=== PATIENT | male | born 1950 | race Caucasian/White ===

== ENCOUNTER 2020-01-06 09:52 | Day surgery (SDC) | payer MEDICARE ==
[2020-01-04 15:30] VITALS: BMI 23.9
[2020-01-06] MEDS ORDERED: SODIUM CHLORIDE 0.9% 500 ML 500 ML IV ONE (10:29)
[2020-01-06 10:31] VITALS: TEMP 98.5
[2020-01-06] MEDS ORDERED: fentaNYL (PF) 50 MCG/ML 2 ML AMP ONE (10:43)
[2020-01-06] MEDS: BENZOCAINE SPRAY 1 CAN TOPICAL ONE ×2 (11:07→11:28)
[2020-01-06] MEDS ORDERED: fentaNYL (PF) 50 MCG/ML 2 ML AMP IVP ONE (11:29)
[2020-01-06] MEDS ORDERED: MIDAZOLAM 2 MG/2 ML VIAL IVP ONE (11:29)
[2020-01-06 11:41] VITALS: RESP 16
--- NOTE | 2020-01-06 12:05 | ECHOT ---
TRANSESOPHAGEAL ECHOCARDIOGRAM INDICATION: CVA, rule out cardiac source of thromboembolic phenomenon. PROCEDURE NOTE: After obtaining informed consent, transesophageal echocardiogram was performed in left lateral position using an Omni plane probe. Local and IV sedation were obtained using Xylocaine spray, intravenous Versed, Demerol, intravenous Versed and fentanyl. Patient tolerated the procedure well without any obvious immediate complications. FINDINGS: 1. There is no intracardiac thrombus within the left atrial appendage, left atrium, right atrium, right ventricle. 2. Interatrial septum, there is no evidence of apzh-ms-[id number] shunt by color-flow Doppler or yadnf-gx-nhhm shunt by agitated saline contrast study. 3. Aortic valve is a 3-leaflet valve. There is mild aortic regurgitation noted. 4. There is mild mitral regurgitation noted. 5. Tricuspid valve appears normal. 6. Left ventricle has normal size and systolic function. 7. Aorta shows mild atherosclerotic changes. 8. There is a annulus aortic ectasia noted. CONCLUSION: 1. No intracardiac thrombus. 2. No shunting across the interatrial septum. 3. Annulus aortic ectasia noted. MMODL / IJN: [id number] /
[2020-01-06 12:41] VITALS: BP 124/62; PULSE 67
--- NOTE | 2020-01-10 07:41 | CDI ---
Outpatient Documentation Clarification Form Date: 01/10/20 CDS/Bag End Sewer Name: Julisa Hankins Phone: If any questions, call [facility] [employer] [facility] at [phone] Patient Name: Buzz Grigsby Admit Date: 01/06/20 Discharge Date: 01/06/20 ATTENTION: The [facility] Coding Staff appreciate your assistance in clarifying documentation. Please respond to the clarification below the line at the bottom and electronically sign. The [facility] Coding staff will review the response and follow-up if needed. Please note: Queries are made part of the Legal Health Record. If you have any questions, please contact the [employer] [facility]. Dear Dr. Alvarenga, Please clarify what parts of the PRASHANT per performed. The charges indicate [id number] Echocardiography transesophageal, [place] 2[place] 99[address] dopple echocardiography color flow velocity mapping. Documentation does not reflect this. Please clarify. Thank you for your kind consideration 2d doppler and colour fow done___ MTDD
== END 2020-01-06 12:41 | disposition home or self-care (01) ==
LOC: CATHCVL 09:52
PROVIDERS: ATTEND Internal Medicine Cardiovascular Disease
DX: I77.819 Aortic ectasia, unspecified site (principal); I08.0 Rheumatic disorders of both mitral and aortic valves; Z86.73 Personal history of transient ischemic attack (TIA), and cerebral infarction without residual deficits; E78.5 Hyperlipidemia, unspecified; Z79.899 Other long term (current) drug therapy
CPT/HCPCS: 93312; 93325; J2250; J3010

== ENCOUNTER → 2023-07-05 | Outpatient (CLI) | payer MEDICARE ==
--- NOTE | 2023-07-07 10:12 | MR ---
EXAMINATION TYPE: MR Prostate wo/w con DATE OF EXAM: 07/05/2023 9:06 AM COMPARISON: None CLINICAL INDICATION:Male, 72 years old with history of R97.20 ELEVATED PROSTATE SPECIFIC ANTIGEN; Brisa vated PSA. TECHNIQUE: Multi-planar, multi-sequence imaging of the pelvis is performed prior to and following the uncomplicated administration of bolus intravenous gadolinium. CONTRAST: 8 Gadobutrol Interpretive Criteria: PI-RADS v2.1 SERUM PSA: 8.7 on 06/20/2023. 7.5 on 05/21/2023. 5.1 on 11/07/2021. 4.2 on 09/07/2020. SURGICAL PATHOLOGY: No data available. FINDINGS: Prostatic dimensions: 5.4 x 5.1 x 4.1 cm. Ellipsoid Volume:59.12 (PSA density=0.15 ng/mL/mL) CENTRAL GLAND (Central and Transition Zones/CZ+TZ): Multiple bilateral, heterogenous appearing hypertrophic stromal nodules, without suspicious lesion. M edian lobe hypertrophy with protrusion into the base of the bladder. (PI-RADS 2) e PERIPHERAL ZONE (PZ): Posterior right peripheral zone mid gland/base are 2 areas of high DWI and low ADC signal measuring 6 mm and 6 mm series 803 image 104. An additional area measuring 7 mm involving the apex is also prese nt. (PI-RADS 4) SEMINAL VESICLES (SV): Symmetric and unremarkable. PERIPROSTATIC TISSUES: Unremarkable. LYMPH NODES: No enlarged pelvic lymph node. REMAINING PELVIS: Bladder wall is within normal limits given distention. No abnormal free or organized intrapelvic fluid collection. No pathologic bowel dilation or mural thickening. Colonic diverticula are present. No hernia visualized OSSEOUS STRUCTURES: No suspicious osseous abnormality. IMPRESSION: 1. Multiple PI-RADS 4 lesions within the peripheral gland on the right. 2 adjacent lesions near the b ase/mid gland measuring 6 mm and another lesion in the apex on the right measuring up to 7 mm. 2. Moderate BPH, estimated gland volume 59.12 mL. 3. No suspicious osseous lesion. No lymphadenopathy. No evidence of prostate adenocarcinoma involving the periprostatic tissues.
== END | disposition home or self-care (01) ==
LOC: RADMRIMAIN 07:29
PROVIDERS: ATTEND Urology
DX: N40.0 Benign prostatic hyperplasia without lower urinary tract symptoms (principal); R97.20 Elevated prostate specific antigen [PSA]
CPT/HCPCS: 72197; A9585

== ENCOUNTER → 2023-08-05 | Outpatient (CLI) | payer MEDICARE ==
[2023-08-05 17:07] LABS: African American GFR (CKD) >90 (>60 ml/min/1.73 sqM); Blood Urea Nitrogen 22 mg/dL (9-20); Non-African American GFR(CKD) >90 (>60 ml/min/1.73 sqM)
--- NOTE | 2023-08-05 19:41 | CT ---
EXAMINATION TYPE: CT chest w con DATE OF EXAM: 08/05/2023 COMPARISON: 03/10/2023 HISTORY: 73-year-old male R91.8, f/u abnormal findings TECHNIQUE: Contiguous axial scanning of the chest after the administration of 100 mL of Isovue 300. Coronal/sagittal reconstructions performed. CT DLP: 521mGycm. Automatic exposure control utilized for a dose reduction. FINDINGS: The heart is normal size without pericardial effusion. Aorta is normal caliber with mild atherosclerotic arch calcifications. 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 No thoracic lymphadenopathy by CT size criteria. Unchanged 5 mm subpleural pulmonary nodule periphery of the right base. Unchanged 7 mm subpleural pulmonary nodule anterior right base. Unchanged 4 mm subpleural pulmonary nodule anterior right middle lobe, axial image 41. No consolidation or pleural effusion. Visualized upper abdomen shows no gross abnormality. Immediate tiny hiatal hernia. Bones: No osseous destructive process. IMPRESSION: A few pulmonary nodules at the right base measuring up to 7 mm remain unchanged for 5 months. Ongoing 6-12 month follow-up CT recommended to ensure more long-term stability. No acute pulmonary process.
== END | disposition home or self-care (01) ==
LOC: RADCTMAIN 16:12
PROVIDERS: ATTEND Family Medicine
DX: R91.8 Other nonspecific abnormal finding of lung field (principal)
CPT/HCPCS: 82565; 84520; 71260; 36415; Q9967

== ENCOUNTER → 2023-08-05 | Outpatient (CLI) | payer MEDICARE ==
[2023-08-05 16:46] LABS: Basophils # (A) 0.04 X 10*3/uL (0.00-0.10); Basophils % (A) 0.5 %; Eosinophils # (A) 0.16 X 10*3/uL (0.04-0.35); Eosinophils % (A) 1.9 %; HCT 45.7 % (39.6-50.0); HGB 15.2 g/dL (13.0-17.0); Lymphocytes # (A) 1.24 X 10*3/uL (0.90-5.00); MCHC 33.3 g/dL (32.0-37.0); MCV 93.3 FL (80.0-97.0); Mean Platelet Volume 10.3 FL (9.5-12.2); Monocytes # (A) 0.67 X 10*3/uL (0.20-1.00); Monocytes % (A) 8.1 %; NRBC Per 100 WBC 0 X 10*3/uL (0.00-0.01); Neutrophils # (A) 6.12 X 10*3/uL (1.80-7.70); Neutrophils % (A) 74.1 %; Platelet Count 156 X 10*3/uL (140-440); RDW 12.8 % (11.5-14.5); WBC 8.26 X 10*3/uL (4.50-10.00)
[2023-08-05 16:50] LABS: BUN/Creat Ratio 21.78 Ratio (12.00-20.00); Blood Urea Nitrogen 19.6 mg/dL (9.0-27.0); Glucose 218 mg/dL (70-110)
[2023-08-05 16:51] LABS: Calcium 9.8 mg/dL (8.7-10.3); Carbon Dioxide 26.2 mmol/L (21.6-31.8); Chloride 103 mmol/L (96-109); Potassium 4.8 mmol/L (3.5-5.5); Sodium 140 mmol/L (135-145)
[2023-08-05 16:54] LABS: Appearance,Urine Clear (Clear); Bilirubin,Urine Negative (Negative); Blood,Urine Negative (Negative); Color,Urine Yellow (Yellow); Ketones,Urine Negative (Negative); Nitrite,Urine Negative (Negative); Specific Gravity,Urine >1.035 (1.001-1.030); Urobilinogen,Urine 0.2
== END | disposition home or self-care (01) ==
LOC: LABPAT 09:39
PROVIDERS: ATTEND Urology
DX: Z01.812 Encounter for preprocedural laboratory examination (principal); R97.20 Elevated prostate specific antigen [PSA]
CPT/HCPCS: 36415; 80048; 81003; 85025; 87086

== ENCOUNTER → 2023-10-03 | Outpatient (CLI) | payer MEDICARE ==
[2023-10-03 16:25] LABS: Basophils # (A) 0.02 X 10*3/uL (0.00-0.10); Basophils % (A) 0.3 %; Eosinophils # (A) 0.13 X 10*3/uL (0.04-0.35); Eosinophils % (A) 1.9 %; HCT 42.2 % (39.6-50.0); HGB 14.5 g/dL (13.0-17.0); Lymphocytes # (A) 1.39 X 10*3/uL (0.90-5.00); Lymphocytes % (A) 20.3 %; MCH 31.2 pg (27.0-32.0); MCHC 34.4 g/dL (32.0-37.0); MCV 90.8 FL (80.0-97.0); Mean Platelet Volume 10.6 FL (9.5-12.2); Monocytes # (A) 0.61 X 10*3/uL (0.20-1.00); Monocytes % (A) 8.9 %; NRBC Per 100 WBC 0 X 10*3/uL (0.00-0.01); Neutrophils # (A) 4.68 X 10*3/uL (1.80-7.70); Neutrophils % (A) 68.3 %; Platelet Count 134 X 10*3/uL (140-440); RBC 4.65 X 10*6/uL (4.40-5.60); RDW 12.3 % (11.5-14.5); WBC 6.85 X 10*3/uL (4.50-10.00)
[2023-10-03 16:37] LABS: Blood Urea Nitrogen 18.8 mg/dL (9.0-27.0); Calcium 9.6 mg/dL (8.7-10.3); Carbon Dioxide 24.7 mmol/L (21.6-31.8); Chloride 105 mmol/L (96-109); Glucose 153 mg/dL (70-110); Potassium 4.6 mmol/L (3.5-5.5); Sodium 142 mmol/L (135-145)
[2023-10-03 16:42] LABS: Appearance,Urine Clear (Clear); Bilirubin,Urine Negative (Negative); Blood,Urine Negative (Negative); Color,Urine Yellow (Yellow); Ketones,Urine Negative (Negative); Nitrite,Urine Negative (Negative); PH, Urine 5.5; Specific Gravity,Urine >1.035 (1.001-1.030); Urobilinogen,Urine 0.2
== END | disposition home or self-care (01) ==
LOC: LABPAT 07:56
PROVIDERS: ATTEND Urology
DX: Z01.812 Encounter for preprocedural laboratory examination (principal); C61 Malignant neoplasm of prostate
CPT/HCPCS: 36415; 80048; 81003; 85025; 86850; 86900; 86901; 87086; 93005

== ENCOUNTER 2023-10-10 09:14 | Day surgery (SDC) | payer MEDICARE ==
[2023-10-08 11:01] VITALS: BMI 24.3
--- NOTE | 2023-10-10 08:08 | P.HPIHPCON ---
History of Present Illness H&P Date: 10/10/23 Chief Complaint: Prostate cancer This is a 73-year-old male with history of [place] 7 prostate cancer. On biopsy high-volume of prostate cancer, discussed with him option of robotic radical prostatectomy versus radiation therapy. Risk and benefit of each approach were discussed in detail, he agreed to proceed with robotic radical prostatectomy with pelvic lymph node dissection. Aware the risk which include but not limited to bleeding, infection, urinary incontinence, erectile dysfunction. Risk of injury to nearby organs which includes but not limited to the bladder and rectum and bowel were discussed. Discussed also potential of cancer recurrence, need for additional treatments and the need for postoperative surveillance. Medical complications were also discussed. He understood all the risk and agreed to proceed Consent for Procedure: I have explained the operation/procedure to the patient, including the risks, benefits, side effects, alternative therapies (including not receiving the proposed treatment or service), the likelihood of the patient achieving his/her goals, and potential recuperation problems for the procedure/sedation/analgesia, as well as any blood products, if indicated. I also explained to the patient the risks, benefits and side effects of the alternatives, as well as the risks related to not receiving the proposed procedure, care, treatment, or services. Past Medical History Past Medical History: Cancer, CVA/TIA, Diabetes Mellitus, Hyperlipidemia Additional Past Medical History / Comment(s): TIA 2019-nubmness toes rt side. Dx Prostate Cancer 2023. No chem or radiation. History of Any Multi-Drug Resistant Organisms: None Reported Past Surgical History: Orthopedic Surgery Additional Past Surgical History / Comment(s): rt ankle ORIF with screw, twilight sedation for MRI. Colonoscopy. Cataract rt eye. Past Anesthesia/Blood Transfusion Reactions: No Reported Reaction Additional Past Anesthesia/Blood Transfusion Reaction / Comment(s): clausterphobia, vertigo. No hx of blood transfusion. Smoking Status: Never smoker - Past Family History Father Family Medical History: Cancer Additional Family Medical History / Comment(s): Leukemia Medications and Allergies Home Medications Medication Instructions Recorded Confirmed Type Atorvastatin [Lipitor] 20 mg PO HS 01/04/20 10/08/23 History lisinopriL [Zestril] 5 mg PO QAM 03/07/23 10/08/23 History metFORMIN HCL 1,000 mg PO 1500 03/07/23 10/08/23 History Cinnamon (Dose Unknown) 1 dose PO 1500 10/08/23 History D3+ Potassium (Dose Unknown) 1 dose PO QAM 10/08/23 History Ibuprofen (Unknown Dose) 1 dose PO Q8H 10/08/23 History Synjardy (Unknown Dose) 1 dose PO QAM 10/08/23 10/08/23 History Turmeric Root Extract [Turmeric] 500 mg PO QAM 10/08/23 10/08/23 History Allergies Allergy/AdvReac Type Severity Reaction Status Date / Time No Known Allergies Allergy Verified 10/08/23 10:47 Surgical - Exam - General no distress, no pain - Eyes normal ocular movement, no pale, no icteric - ENT normal nares, normal mucosa - Respiratory normal expansion, normal respiratory effort - Abdomen Abdomen: soft, non tender Assessment and Plan Assessment: OR for robotic radical prostatectomy with bilateral pelvic lymph node dissection
[~2023-10-10 09:14] MED LIST: HYDROmorphone 0.5 MG/0.5 ML SYRINGE IVP PRN; LIDOCAINE 1% (10MG/ML) FOR IV START INTRADERMA PRN; MIDAZOLAM 2 MG/2 ML VIAL IV PRN
[2023-10-10 10:00] LABS: Glucose,Whole Blood 149 mg/dL (70-110)
[2023-10-10] MEDS: LACTATED RINGERS 1,000 ML IV SCH (10:39)
[2023-10-10] MEDS: ONDANSETRON 4 MG/2 ML VIAL IVP ONE (10:40)
[2023-10-10] MEDS: DEXAMETHASONE SOD PHOSPHATE 4 MG/ML 1 ML VIAL IV ONE (10:40)
[2023-10-10] MEDS: MIDAZOLAM 2 MG/2 ML VIAL IVP ONE (10:51)
[2023-10-10] MEDS: HEPARIN SODIUM,PORCINE 5,000 UNIT/ML 1 ML VIAL SQ PRN (11:07)
--- NOTE | 2023-10-10 11:16 | P.ANPRN ---
Procedure Note - Anesthesia - Nerve Block Performed Bilateral Erector Spinae Single Time Out Performed: Yes Date of Procedure: 10/10/23 Procedure Start Time: 10:50 Procedure Stop Time: 11:00 Location of Patient: PreOp Indication: Acute Post-Operative Pain, Requested by Surgeon Sedation Type: Sedate with meaningful contact maintained Preparation: Sterile Prep Position: Prone Catheter: None Needle Types: Facet Needle Gauge: 20 Ultrasound used to visualize needle placement: Yes Ultrasound used to observe medication spread: Yes Injectate: Other (see comment) (Ropivacaine 0.25% + decadron 2 mg 30 ml per side) Blood Aspirated: No Pain Paresthesia on Injection Noted: No Resistance on Injection: Normal Image Stored and Saved: Yes Events: Uneventful and Well Tolerated
[2023-10-10] MEDS ORDERED: ONDANSETRON 4 MG/2 ML VIAL IVP PRN (12:20)
[2023-10-10] MEDS ORDERED: GLYCOPYRROLATE 0.2 MG/ML 2 ML VIAL ONE (12:27)
[2023-10-10] MEDS ORDERED: ROCURONIUM 10 MG/ML (5 ML VIAL) IV ONE (12:27)
[2023-10-10] MEDS ORDERED: PHENYLEPHRINE-0.9% NACL SYG 1,000 MCG/10 ML SYRINGE ONE (12:27)
[2023-10-10] MEDS ORDERED: NEOSTIGMINE 1 MG/ML 10 ML VIAL ONE (12:27)
[2023-10-10] MEDS ORDERED: SODIUM CHLORIDE 0.9% (PF) 10 ML VIAL ONE (12:27)
[2023-10-10] MEDS ORDERED: PROPOFOL 10 MG/ML 20 ML VIAL IV ONE (12:27)
[2023-10-10] MEDS ORDERED: fentaNYL (PF) 50 MCG/ML 2 ML AMP ONE (12:27)
[2023-10-10] MEDS ORDERED: ROPIVACAINE 5 MG/ML 30 ML VIAL ONE (12:27)
[2023-10-10] MEDS ORDERED: LIDOCAINE 1% INJ 10MG/ML (20 ML MDV) ONE (12:27)
[2023-10-10] MEDS ORDERED: LABETALOL 5 MG/ML VIAL MDV ONE (12:27)
[2023-10-10] MEDS ORDERED: DEXAMETHASONE SOD PHOSPHATE 4 MG/ML 1 ML VIAL ONE (12:27)
[2023-10-10] MEDS ORDERED: HYDROmorphone (PF) 1 MG/ML ONE (12:27)
[2023-10-10] MEDS ORDERED: SUCCINYLCHOLINE CHLORIDE 200 MG/10 ML VIAL IV ONE (12:27)
[2023-10-10] MEDS ORDERED: MIDAZOLAM 2 MG/2 ML VIAL ONE (12:27)
[2023-10-10] MEDS: BUPIVACAINE (PF) 0.25% 30 ML VIAL SQ ONE ×2 (12:35→16:50)
[2023-10-10] MEDS: LACTATED RINGERS 1,000 ML IV ONE ×2 (16:32→16:39)
--- NOTE | 2023-10-10 16:51 | P.OP ---
Date of Procedure: 10/10/23 Preoperative Diagnosis: Prostate cancer Postoperative Diagnosis: Same Procedure(s) Performed: Robotic radical prostatectomy with bilateral pelvic lymph node dissection Implants: None Anesthesia: KANIKAA Surgeon: Obie Rueda Estimated Blood Loss (ml): 200 Pathology: other (Prostate, bilateral seminal vesicles, bilateral pelvic lymph nodes) Condition: stable Disposition: PACU Indications for Procedure: This is a 73-year-old male with history of [place] 7 prostate cancer. On biopsy high-volume of prostate cancer, discussed with him option of robotic radical prostatectomy versus radiation therapy. Risk and benefit of each approach were discussed in detail, he agreed to proceed with robotic radical prostatectomy with pelvic lymph node dissection. Aware the risk which include but not limited to bleeding, infection, urinary incontinence, erectile dysfunction. Risk of injury to nearby organs which includes but not limited to the bladder and rectum and bowel were discussed. Discussed also potential of cancer recurrence, need for additional treatments and the need for postoperative surveillance. Medical complications were also discussed. He understood all the risk and agreed to proceed Description of Procedure: After preoperative antibiotics were started, the patient was taken to the operating room. Anesthesia was induced and the patient was placed in a supine position, with adequate padding of the pressure points, shoulders, back, legs and arms. He was then prepped and draped in the standard fashion. A critical pause was performed using two patient identifiers. A 16F thomas catheter was placed to gravity drainage. A pneumo-peritoneum was created with placement of a Veress needle to 20 mm Hg without complication, and a 8 Fr trocar was placed above the umbillicus. Under direct vision a 8mm robotic ports was placed lateral to each rectus slightly below the camera port. The left iliac fossa 8mm port was placed. The right hotel assistant manager right iliac fossa 12mm port and right paramedian 5mm portwere placed. After the patient was placed in the trendelenberg position, the robot was then docked to the 8mm robotic ports and then each robotic arm and tower was checked in relation to the patient's legs and hands to avoid inadvertent compression. The peritoneal cavity was inspected. An inverted U-shaped incision began laterally to the left medial umbilical ligament and extended high across the midline to the right umbilical ligament. The limbs of the "U" extended to the level of the vasa on both sides. We next developed the preperitoneal space and the space of Retzius. Cautery was used to dissected the bladder away from the prostate. After the anterior bladder neck was incised and the bladder entered the the posterior bladder neck was exposed and the ureteral orifces identified. The posterior bladder neck was then incised and dissected away from the prostate. The vas and the seminal vesicles were now exposed and dissected to their insertions into the prostate and were not spared. The posterior layer of the Denonvillier's fascia was incised to enter pravin the plane between prostate and perirectal fat. Each lateral pedicle was controlled with clips and cautery for hemostasis. No nerve preservation was performed on the right, complete nerve preservation was performed on the left. The puboprostatic ligament was incised where it inserted into the apex of the prostate and a plane between urethra and dorsal venous complex developed to expose the anterior urethral surface. The anterior wall of the urethra was transected with the cut setting a few millimeters distal to the apex of the prostate. The dorsal vein was ligated using 3-0 V lock bilateral obturator and external iliac lymph node packets were carefully dissected after careful visualization of the hypogastric artery and obturator nerve. There was careful attention paid to hemostasis with judicious use of cautery. The urethrovesical anastomosis was performed . the posterior denovillers was reapproximated using 3-0 V lock. A 6 and 6 inch 3-0 V-Lock suture was used to anastomose the urethra and bladder, starting at the 6:00 posterior position. Mucosa was secured in every stitch, to ensure a mucosa to mucosa anastomosis. The stitch was regularly cinched and the anastomosis tightened. Care was taken to not violate the ureteral orifices. The Thomas catheter was advanced, the bladder filled, and the anastomosis was tested, as described above. Anastomsis was watertight at 200 mL The periumbilical fascia was closed with 1-0-PDS suture in figure of 8 fashion. All ports were closed with a subcuticular 4-0 monocryl and Dermabond. Sponge, instrument, and needle counts were correct at the end of the case x2. All specimens including prostate and lymph nodes were sent to pathology for diagnosis and will be available in a week. The patient tolerated the surgery well and without complication. He awoke without difficulty and was taken to the recovery room in stable condition
[2023-10-10] MEDS: KETOROLAC 15 MG/ML 1 ML VIAL IVP SCH (18:46)
[2023-10-10] MEDS: metFORMIN 500 MG TAB PO SCH (18:54)
[2023-10-10] MEDS: HEPARIN SODIUM,PORCINE 5,000 UNIT/ML 1 ML VIAL SQ SCH (19:55)
[2023-10-10] MEDS: SODIUM CHLORIDE 0.9% 1,000 ML IV SCH (19:55)
[2023-10-10] MEDS: ATORVASTATIN 20 MG TAB PO SCH (19:55)
[2023-10-10] MEDS: HYDROmorphone 1 MG/ML 1 ML SYRINGE IVP PRN (20:43)
[2023-10-11 02:51] VITALS: TEMP 98.2
[2023-10-11 08:23] VITALS: BP 102/57; PULSE 88; RESP 17
[2023-10-11] MEDS: lisinopriL 5 MG TAB PO SCH (08:28)
--- NOTE | 2023-10-11 10:40 | P.DS ---
Providers Attending physician: Obie Rueda MD Primary care physician: [facility] Course: The patient was admitted to the hospital 11/09/2023 for a robotic assisted prostatectomy. He did well overnight. His vital signs are stable. His abdomen is soft. Pain is minimal. Urine output is good. He has eaten. He is ready for discharge home. He will be discharged home on regular diet limited activity. He will go home with a Orr catheter. He has been given him a prescription of Boyds. His condition is good. Pathology report is pending. His follow-up is October 20, 2023 Plan - Discharge Summary Discharge Rx Participant: No New Discharge Prescriptions: New HYDROcodone/APAP 5-325MG [Boyds 5-325] 1 tab PO Q4HR PRN #14 tab PRN Reason: Pain No Action Atorvastatin [Lipitor] 20 mg PO HS metFORMIN HCL 1,000 mg PO 1500 Turmeric Root Extract [Turmeric] 500 mg PO QAM Synjardy (Unknown Dose) 1 dose PO QAM Ibuprofen (Unknown Dose) 1 dose PO Q8H D3+ Potassium (Dose Unknown) 1 dose PO QAM lisinopriL [Zestril] 5 mg PO QAM Cinnamon (Dose Unknown) 1 dose PO 1500 Discharge Medication List Atorvastatin [Lipitor] 20 mg PO HS 01/04/20 [History] lisinopriL [Zestril] 5 mg PO QAM 03/07/23 [History] metFORMIN HCL 1,000 mg PO 1500 03/07/23 [History] Cinnamon (Dose Unknown) 1 dose PO 1500 10/08/23 [History] D3+ Potassium (Dose Unknown) 1 dose PO QAM 10/08/23 [History] Ibuprofen (Unknown Dose) 1 dose PO Q8H 10/08/23 [History] Synjardy (Unknown Dose) 1 dose PO QAM 10/08/23 [History] Turmeric Root Extract [Turmeric] 500 mg PO QAM 10/08/23 [History] HYDROcodone/APAP 5-325MG [Boyds 5-325] 1 tab PO Q4HR PRN #14 tab 10/11/23 [Rx] Follow up Appointment(s)/Referral(s): Obie Rueda MD [STAFF PHYSICIAN] - 10/20/23 (Home with Orr, leg and overnight bag) Discharge Disposition: HOME SELF-CARE
[2023-10-11] MEDS: HYDROcodone/APAP 5-325MG 1 EACH TAB PO PRN (12:59)
== END 2023-10-11 14:44 | disposition home or self-care (01) ==
LOC: OR 09:14 → 5NMEDONC 15:00 → OR 10-11 14:44
PROVIDERS: ATTEND Urology
DX: C61 Malignant neoplasm of prostate (principal); E78.5 Hyperlipidemia, unspecified; G89.18 Other acute postprocedural pain; E11.9 Type 2 diabetes mellitus without complications; F10.90 Alcohol use, unspecified, uncomplicated; Z79.84 Long term (current) use of oral hypoglycemic drugs; Z86.73 Personal history of transient ischemic attack (TIA), and cerebral infarction without residual deficits; Z79.899 Other long term (current) drug therapy; Z79.1 Long term (current) use of non-steroidal anti-inflammatories (NSAID); Z98.890 Other specified postprocedural states
CPT/HCPCS: 55866; 38571; 64999; 88344; 88307; 88309; 88341; C1762; J2250; J0330; J1644 ×2; J1100; J2710; J0690; J2405; J2001; J3010; J1170; J2795; J1885 ×2; J2704; J2371; J0665; J1920

== ENCOUNTER 2023-10-11 18:55 | Emergency (ER) | payer MEDICARE ==
[2023-10-11 19:30] VITALS: RESP 18; TEMP 97.8
--- NOTE | 2023-10-11 20:00 | ED ---
Male Urogenital HPI - General Chief complaint: Urogenital Stated complaint: post op Time Seen by Provider: 10/11/23 19:10 Source: patient Mode of arrival: wheelchair Limitations: no limitations - History of Present Illness Initial comments: 73-year-old male presents emergency department for urinary retention. Patient was just discharged from the fifth floor after he had a radical prostatectomy. States that they placed a leg bag on him and sent him home. States that since he has been home he has not had any drainage in his bag. He feels as if he is extremely distended. Patient is concerned that he may have tito the catheter and displaced it. Patient's postop course was uncomplicated up until now. He denies any heavy bleeding or clotting. - Related Data Home Medications Medication Instructions Recorded Confirmed Atorvastatin [Lipitor] 20 mg PO HS 01/04/20 10/08/23 lisinopriL [Zestril] 5 mg PO QAM 03/07/23 10/08/23 metFORMIN HCL 1,000 mg PO 1500 03/07/23 10/08/23 Cinnamon (Dose Unknown) 1 dose PO 1500 10/08/23 D3+ Potassium (Dose Unknown) 1 dose PO QAM 10/08/23 Ibuprofen (Unknown Dose) 1 dose PO Q8H 10/08/23 Synjardy (Unknown Dose) 1 dose PO QAM 10/08/23 10/08/23 Turmeric Root Extract [Turmeric] 500 mg PO QAM 10/08/23 10/08/23 Previous Rx's Medication Instructions Recorded HYDROcodone/APAP 5-325MG [[place] 1 tab PO Q4HR PRN #14 tab 10/11/23 5-325] Allergies Allergy/AdvReac Type Severity Reaction Status Date / Time No Known Allergies Allergy Verified 10/10/23 09:48 Review of Systems ROS Statement: Those systems with pertinent positive or pertinent negative responses have been documented in the HPI. ROS Other: All systems not noted in ROS Statement are negative. Past Medical History Past Medical History: Diabetes Mellitus, Hyperlipidemia Additional Past Medical History / Comment(s): vertigo, had episode with numbness on right side, following up with neurologist History of Any Multi-Drug Resistant Organisms: None Reported Past Surgical History: Prostate Surgery Additional Past Surgical History / Comment(s): rt ankle ORIF with screw, twilight sedation for MRI, prostate surgery 10/10/23 Past Anesthesia/Blood Transfusion Reactions: No Reported Reaction Additional Past Anesthesia/Blood Transfusion Reaction / Comment(s): clausterphobia, vertigo Past Psychological History: No Psychological Hx Reported Smoking Status: Never smoker Past Alcohol Use History: None Reported Past Drug Use History: None Reported - Past Family History Father Family Medical History: Cancer General Exam Limitations: no limitations General appearance: alert, other (uncomfortable) Head exam: Present: atraumatic, normocephalic, normal inspection Eye exam: Present: normal appearance, PERRL, EOMI. Absent: scleral icterus, conjunctival injection, periorbital swelling ENT exam: Present: normal exam, mucous membranes moist Neck exam: Present: normal inspection. Absent: tenderness, meningismus, lymphadenopathy Respiratory exam: Present: normal lung sounds bilaterally. Absent: respiratory distress, wheezes, rales, rhonchi, stridor Cardiovascular Exam: Present: regular rate, normal rhythm, normal heart sounds. Absent: systolic murmur, diastolic murmur, rubs, gallop, clicks GI/Abdominal exam: Present: soft, tenderness (Suprapubic tenderness), normal bowel sounds. Absent: distended, guarding, rebound, rigid exam: Present: normal inspection, other (Evaluation of the patient's Orr catheter bag demonstrates that it is upside down and clamped off at the patient). Absent: testicular tenderness, urethral discharge Extremities exam: Present: normal inspection, full ROM, normal capillary refill. Absent: tenderness, pedal edema, joint swelling, calf tenderness Back exam: Present: normal inspection Neurological exam: Present: alert, oriented X3, CN II-XII intact Psychiatric exam: Present: normal affect, normal mood Skin exam: Present: warm, dry, intact, normal color. Absent: rash Course Vital Signs 10/11/23 10/11/23 19:08 20:12 Temperature 97.8 F Pulse Rate 91 76 Respiratory 18 18 Rate Blood Pressure 153/81 120/61 O2 Sat by Pulse 96 97 Oximetry Medical Decision Making - Medical Decision Making Was pt. sent in by a medical professional or institution (, PA, EQUIPMENT INSTALLER, urgent care, hospital, or longterm...) When possible be specific @ -No Did you speak to anyone other than the patient for history (EMS, parent, family, police, friend...)? What history was obtained from this source @ -No Did you review nursing and triage notes (agree or disagree)? Why? @ -I reviewed and agree with nursing and triage notes Were old charts reviewed (outside hosp., previous admission, EMS record, old EKG, old radiological studies, urgent care reports/EKG's, longterm records)? Report findings @ -I reviewed the patient's operative note and discharge summary. Discharge summary was from today Differential Diagnosis (chest pain, altered mental status, abdominal pain women, abdominal pain men, vaginal bleeding, weakness, fever, dyspnea, syncope, headache, dizziness, GI bleed, back pain, seizure, CVA, palpatations, mental health, musculoskeletal)? @ -Differential Abdominal Pain Men: Appendicitis, cholecystitis, diverticulosis, ischemic bowel, pancreatitis, hepatitis, UTI, gastroenteritis, AAA, incarcerated hernia, bowel obstruction, constipation, inflammatory bowel, hepatitis, peptic ulcer disease, splenic infarction, perforated viscus, testicular torsion, this is not meant to be an all-inclusive list EKG interpreted by me (3pts min.). @ -Not done X-rays interpreted by me (1pt min.). @ -None done CT interpreted by me (1pt min.). @ -None done U/S interpreted by me (1pt. min.). @ -None done What testing was considered but not performed or refused? (CT, X-rays, U/S, labs)? Why? @ -None What meds were considered but not given or refused? Why? @ -None Did you discuss the management of the patient with other professionals (professionals i.e. , PA, EQUIPMENT INSTALLER, lab, RT, psych nurse, social work supervisor, research manufacturing operator, teacher, ecological technical officer, disease case manager rn)? Give summary @ -No Was smoking cessation discussed for >3mins.? @ -No Was critical care preformed (if so, how long)? @ -No Were there social determinants of health that impacted care today? How? (Homelessness, low income, unemployed, alcoholism, drug addiction, transportation, low edu. Level, literacy, decrease access to med. care, senior living, rehab)? @ -No Was there de-escalation of care discussed even if they declined (Discuss DNR or withdrawal of care, Hospice)? DNR status @ -No What co-morbidities impacted this encounter? (DM, HTN, Smoking, COPD, CAD, Cancer, CVA, ARF, Chemo, Hep., AIDS, mental health diagnosis, sleep apnea, morbid obesity)? @ -Prostate cancer status post prostatectomy Was patient admitted / discharged? Hospital course, mention meds given and route, prescriptions, significant lab abnormalities, going to OR and other pertinent info. @ -Upon arrival patient was seen and evaluated in room 29. Thorough history and physical exam was performed. Home evaluation of the patient's catheter demonstrates that the leg bag has been placed on upside down. The clamp was closest to the patient and was closed therefore the patient was not allowed to drain into his catheter bag. The catheter bag was turned around. Patient was able to drain 400 cc of urine with no clots. There is a slight pink tinge. Patient feels much relief. Patient will be discharged home at this time and is to maintain his regular follow-up. I did call up to the fifth floor to educate them in regards to the Orr catheter bag. Patient discharged home in stable condition Undiagnosed new problem with uncertain prognosis? @ -No Drug Therapy requiring intensive monitoring for toxicity (Heparin, Nitro, Insulin, Cardizem)? @ -No Were any procedures done? @ -No Diagnosis/symptom? @ -Acute urinary retention, inappropriate placement of Orr catheter bag Acute, or Chronic, or Acute on Chronic? @ -Acute Uncomplicated (without systemic symptoms) or Complicated (systemic symptoms)? @ -Uncomplicated Side effects of treatment? @ -No Exacerbation, Progression, or Severe Exacerbation? @ -No Poses a threat to life or bodily function? How? (Chest pain, [place], [place], pneumonia, PE, COPD, DKA, ARF, appy, cholecystitis, CVA, Diverticulitis, Homicidal, Suicidal, threat to staff... and all critical care pts) @ -No Disposition Clinical Impression: Malfunction of Orr catheter Disposition: HOME SELF-CARE Condition: Stable Instructions (If sedation given, give patient instructions): Urinary Retention in Men (ED) Additional Instructions: Your bag is now on in the correct manner. follow up with Dr. Rueda as directed. Is patient prescribed a controlled substance at d/c from ED?: No Referrals: Carlos Caballero MD [Primary Care Provider] - 1-2 days Time of Disposition: 19:59
[2023-10-11 20:46] VITALS: BP 120/61; PULSE 76
== END 2023-10-11 20:13 | disposition home or self-care (01) ==
LOC: EC 18:55
DX: T83.098A Other mechanical complication of other urinary catheter, initial encounter (principal)
CPT/HCPCS: 99283

== ENCOUNTER → 2024-02-12 | Outpatient (CLI) | payer MEDICARE ==
[2024-02-12 08:06] LABS: African American GFR (CKD) >90 (>60 ml/min/1.73 sqM); Blood Urea Nitrogen 17 mg/dL (9-20); Non-African American GFR(CKD) >90 (>60 ml/min/1.73 sqM)
--- NOTE | 2024-02-12 08:38 | CT ---
EXAMINATION TYPE: CT chest w con CT DLP: 423 mGycm, Automated exposure control for dose reduction was used. DATE OF EXAM: 02/12/2024 8:31 AM COMPARISON: 08/05/2023 CLINICAL INDICATION: Male, 73 years old with history of R91.1 SOLITARY PULMONARY NODULE; PHH, Solitar y pulmonary nodule TECHNIQUE: Multiple axial images were obtained through the chest. Sagittal and coronal reformats were created for review. Contrast used:100 mL of Isovue 300 with IV Contrast (None if empty) Oral contrast used: (None if empty) FINDINGS: LUNGS/ PLEURA: Similar anterior right lobe 6 mm nodule 42.4 posterior right lower lobe nodule near th e pleura measuring 3 mm image 52 series 4, andrae middle lobe subpleural 4 mm nodules image 39 serie s 4. No focal consolidation, pneumothorax or pleural effusion. No new or enlarging pulmonary nodules. AIRWAY: Patent and unremarkable. HEART: Size within normal limits. MEDIASTINUM: No gross evidence of adenopathy. VASCULATURE: Atherosclerotic calcifications are present throughout the aorta and its branches. MUSCULOSKELETAL: No acute osseous abnormalities SOFT TISSUES/LYMPH NODES: Unremarkable. LOWER NECK: No significant findings. UPPER ABDOMEN: No significant findings. IMPRESSION: 1. Stable pulmonary nodules no new or enlarging pulmonary nodules. These nodules may actually be ate lectasis along the pleura. Pressures lesions or lymphadenopathy. 2. No acute abdominal process.
== END | disposition home or self-care (01) ==
LOC: RADCTMAIN 07:18
PROVIDERS: ATTEND Family Medicine
DX: R91.8 Other nonspecific abnormal finding of lung field (principal)
CPT/HCPCS: 82565; 84520; 71260; 36415; Q9967

== ENCOUNTER → 2024-06-30 | Outpatient (CLI) | payer MEDICARE ==
[2024-06-30 17:06] LABS: ALT 21 U/L (10-49); AST 29 U/L (14-35); Albumin 4.6 g/dL (3.8-4.9); Alkaline Phosphatase 95 U/L (41-126); Blood Urea Nitrogen 27.6 mg/dL (9.0-27.0); Calcium 9.8 mg/dL (8.7-10.3); Carbon Dioxide 23.7 mmol/L (21.6-31.8); Chloride 104 mmol/L (96-109); Chol/HDL Ratio 3.56 Ratio; Creatine Kinase 92 U/L (35-257); Glucose 94 mg/dL (70-110); Potassium 4.6 mmol/L (3.5-5.5); Sodium 140 mmol/L (135-145); Total Bilirubin 0.8 mg/dL (0.3-1.2); Total Protein 6.6 g/dL (6.2-8.2); VLDL Calculation 13.46 mg/dL (5.00-40.00)
[2024-06-30 17:12] LABS: HCT 46.9 % (39.6-50.0); HGB 15.9 g/dL (13.0-17.0); MCH 31.2 pg (27.0-32.0); MCHC 33.9 g/dL (32.0-37.0); Mean Platelet Volume 10.8 FL (9.5-12.2); NRBC Per 100 WBC 0 X 10*3/uL (0.00-0.01); Platelet Count 153 X 10*3/uL (140-440); RDW 12.7 % (11.5-14.5)
[2024-06-30 17:13] LABS: Basophils # (A) 0.03 X 10*3/uL (0.00-0.10); Basophils % (A) 0.4 %; Eosinophils # (A) 0.09 X 10*3/uL (0.04-0.35); Eosinophils % (A) 1.2 %; Lymphocytes # (A) 1.55 X 10*3/uL (0.90-5.00); Lymphocytes % (A) 19.9 %; Monocytes # (A) 0.75 X 10*3/uL (0.20-1.00); Monocytes % (A) 9.6 %; Neutrophils # (A) 5.36 X 10*3/uL (1.80-7.70); Neutrophils % (A) 68.6 %
== END | disposition home or self-care (01) ==
LOC: LABWHC1 08:20
PROVIDERS: ATTEND Family Medicine
DX: Z00.01 Encounter for general adult medical examination with abnormal findings (principal); E78.5 Hyperlipidemia, unspecified
CPT/HCPCS: 36415; 80053; 80061; 82550; 83036; 85025